=== PATIENT | female | born 1970 | race Two or more races ===

== ENCOUNTER 2021-04-27 02:17 | Emergency (ER) | payer SELFPAY ==
[~2021-04-27] VITALS: Ht 157.5 cm; Wt 45.4 kg
--- NOTE | 2021-04-27 02:45 | NUR ---
After being traiged patient was sent back to waiting room due to no beds available.
--- NOTE | 2021-04-27 03:48 | NUR ---
DR. DOUGLAS AT BEDSIDE, MSE IN PROGRESS.
--- NOTE | 2021-04-27 04:08 | NUR ---
CALLED POISON CONTROL SPOKE WITH MARIE REGARDING PTS COMPLAINTS AND SYMPTOMS. AFTER EXPLAINING THE PT'S SYMPTOMS MARIE STATES THIS IS MOST LIKELY NOT A BLACK BITE STATED BY PATIENT AND TO JUST TREAT HER SYMPTOMS THAT SHE IS COMPLAINING ABOUT. MARIE ALSO STATES THEY RARELY PROVIDE BLACK ANTIDOTE DUE TO THE HIGH MORTALITY FROM ANTIDOTE REACTION. DR. DOUGLAS MADE AWARE.
[2021-04-27 04:19] LABS: HEMATOCRIT 35.7 % (31.2-41.9); MEAN CORPUSCULAR HEMOGLOBIN 32.5 uug (24.7-32.8); MEAN CORPUSCULAR VOLUME 95.2 fL (75.5-95.3); PLATELET COUNT (AUTO) 229 K/uL (179-408)
[2021-04-27 04:31] LABS: ALANINE AMINOTRANSFERASE 24 U/L (14-59); ALKALINE PHOSPHATASE 75 U/L (50-136); ASPARTATE AMINOTRANSFERASE 19 U/L (15-37); BILIRUBIN,DIRECT 0.1 mg/dL (0.0-0.2); BILIRUBIN,TOTAL 0.6 mg/dL (0.2-1.0); CARBON DIOXIDE 28 mmol/L (21-32); CHLORIDE 106 mmol/L (98-107); CREATININE 0.6 mg/dL (0.6-1.3); GLUCOSE 111 mg/dL (74-106); POTASSIUM 3.6 mmol/L (3.5-5.1); TOTAL PROTEIN, SERUM 7.9 g/dL (6.4-8.2); UREA NITROGEN, BLOOD 11 mg/dL (7-18)
[2021-04-27 04:41] LABS: ETHANOL < 3 MG/DL (0-0)
[2021-04-27 05:19] LABS: *BILIRUBIN,URIN NEGATIVE (NEGATIVE); *BLOOD, URINE NEGATIVE (NEGATIVE); *CLARITY,URINE CLEAR (CLEAR); *KETONES,URINE NEGATIVE (NEGATIVE); *UROBILINOGEN,URINE 0.2 E.U./dl (NORMAL); LEUKOCYTE ESTERASE ,URINE NEGATIVE (NEGATIVE); NITRITE, URINE NEGATIVE (NEGATIVE); UGLUCOSE NEGATIVE (NEGATIVE)
[2021-04-27 05:20] LABS: *COLOR,URINE STRAW (YELLOW)
[2021-04-27 05:32] LABS: *AMPHETAMINE, URINE NEGATIVE (NEGATIVE); *CANNABINOID, URINE NEGATIVE (NEGATIVE); *COCCAINE, URINE NEGATIVE (NEGATIVE); *OPIATE, URINE NEGATIVE (NEGATIVE); *PHENCYCLIDINE SCREEN,URINE NEGATIVE (NEGATIVE)
--- NOTE | 2021-04-27 06:29 | NUR ---
Patient is resting comfortably in bed, noted to be using her cell phone.
--- NOTE | 2021-04-27 07:00 | NUR ---
GAVE REPORT TO ISABELA SHEPPARD. PT NOTED TO BE IN BED, COMFORTABLE, VITALS STABLE.
--- NOTE | 2021-04-27 11:16 | NUR ---
PT WAS D/C'd TO HOME. D/C INSTRUCTIONS GIVEN TO THE PT BY DR DOUGLAS.
[2021-04-27 11:38] VITALS: BP 131/72
== END 2021-04-27 11:39 | disposition home or self-care (01) ==
LOC: ER 02:31
DX: N76.2 Acute vulvitis (principal); T63.311A Toxic effect of venom of black widow spider, accidental (unintentional), initial encounter; R07.9 Chest pain, unspecified; Y92.480 Sidewalk as the place of occurrence of the external cause
CPT/HCPCS: 36415; 70030-TC; 85025; 85730; 93005; A4663; G0480